=== PATIENT | female | born 1990 | race American Indian/Alaskan Native ===

== ENCOUNTER 2016-11-03 17:49 | Emergency (ER) | payer SELFPAY ==
[2016-11-03 18:32] VITALS: BP 137/79; PULSE 73; RESP 18; TEMP 97.7; O2SAT 100
[2016-11-03 18:35] VITALS: BMI 45.6
--- NOTE | 2016-11-03 18:59 | ED PDOC ---
Arrival/HPI - General Chief Complaint: Abnormal Skin Integrity Time Seen by Provider: 11/03/16 18:59 Historian: Patient - History of Present Illness Narrative History of Present Illness (Text): 11/03/16 19:10 25yr old female presents today with abscess to the vaginal region x 3 days. pt states she noticed slight irritation to the left side of the vaginal about 3 days ago, pt states she started doing warm soaks and the area of irritation increased in size. pt now c/o painful lump to left side of labia. no fever/ chills. denies dysuria. pt states she is not sexually active. no abdominal pain. no other complaints. Time/Duration: Other (3 days) Symptom Course: Worsening Quality: Aching, Throbbing Severity Level: 8 Past Medical History - Provider Review Nursing Documentation Reviewed: Yes - Travel History Have you recently traveled outside [place] w/in the past 3 mons?: No - Infectious Disease Hx of Infectious Diseases: None - Psychiatric Hx Substance Use: No - Surgical History Hx Orthopedic Surgery: Yes - Anesthesia Hx Anesthesia: No Hx Anesthesia Reactions: No Hx Malignant Hyperthermia: No Family/Social History - Physician Review Nursing Documentation Reviewed: Yes Family/Social History: Unknown Family HX Smoking Status: Never Smoked Hx Alcohol Use: No Hx Substance Use: No Allergies/Home Meds Allergies/Adverse Reactions: Allergies de [place] cruz Allergy (Verified 11/03/16 18:42) ITCHING Review of Systems - Review of Systems Constitutional: absent: Fatigue, Fevers Respiratory: absent: SOB, Cough Cardiovascular: absent: Chest Pain Gastrointestinal: absent: Abdominal Pain Genitourinary Female: absent: Dysuria Musculoskeletal: absent: Back Pain Skin: Abscess Psychiatric: absent: Anxiety, Depression Physical Exam Vital Signs Reviewed: Yes Vital Signs Temp Pulse Resp BP Pulse Ox 11/03/16 18:31 97.7 F 73 18 137/79 100 Temperature: Afebrile Blood Pressure: Normal Pulse: Regular Respiratory Rate: Normal Appearance: Positive for: Well-Appearing, Non-Toxic, Comfortable Pain Distress: None Mental Status: Positive for: Alert and Oriented X 3 - Systems Exam Head: Present: Atraumatic Mouth: Present: Moist Mucous Membranes Neck: Present: Normal Range of Motion Abdomen: No: Tenderness Genitourinary/Pelvic Exam: No: Normal External Genitalia (there is a grape sized area of swelling and erythema and fluctuance noted to the left labia minora; + tenderness; ) Upper Extremity: Present: Normal Inspection Lower Extremity: Present: Normal Inspection Neurological: Present: GCS=15, Speech Normal Skin: Present: Warm, Normal Color, Abscess (left side of labia minora) Lymphatic: No: Inguinal Adenopathy Psychiatric: Present: Alert, Oriented x 3 Medical Decision Making ED Course and Treatment: 11/03/16 21:01 Patient is nontoxic well-appearing in no distress. Vital signs are stable. Motrin, tramadol given for pain Bactrim DS p.o. needle aspiration performed; procedure note; left upper labia; abscess; 0.5cc of 1% lidocaine injected locally into central fluctuance using sterile technique. adequate anesthesia. 18guage needle inserted over central fluctuance; 2cc of purulent discharge released. pt tolerated procedure well. no complications. pt feeling much better after procedure; Patient was advised to use warm compresses warm soaks. advised taking abx as prescribed. 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 advised return immediately if symptoms worsen persist or if new symptoms develop Patient verbalizes understanding of discharge instructions and need for immediate followup. Impression: Abscess, labia Motrin one tablet every 6 hours as needed for pain tramadol; one tablet every 6 hours as needed for moderate to severe pain: May cause drowsiness Bactrim DS: One tablet twice daily x7 days Warm compresses and warm soaks frequently Follow up with the [facility] within the next 2 days. Return immediately if symptoms worsen persist or if new symptoms develop: High fevers, increasing pain, increasing redness, swelling or if any other concerning symptoms develop. - Medication Orders Current Medication Orders: Ketorolac Tromethamine (Toradol) 60 mg IM STAT STA Stop: 11/03/16 19:06 Trimethoprim/Sulfamethoxazole (Bactrim Ds Tab) 1 tab PO STAT STA PRN Reason: Protocol Stop: 11/03/16 19:06 Disposition/Present on Arrival - Present on Arrival Any Indicators Present on Arrival: No History of DVT/PE: No History of Uncontrolled Diabetes: No Urinary Catheter: No History of Decub. Ulcer: No History Surgical Site Infection Following: None - Disposition Have Diagnosis and Disposition been Completed?: Yes Diagnosis: Abscess Disposition: HOME/ ROUTINE Disposition Time: 18:59 Patient Plan: Discharge Condition: GOOD Discharge Instructions (ExitCare): Abscess (ED) Additional Instructions: Motrin one tablet every 6 hours as needed for pain tramadol; one tablet every 6 hours as needed for moderate to severe pain: May cause drowsiness Bactrim DS: One tablet twice daily x7 days Warm compresses and warm soaks frequently Follow up with the [facility] within the next 2 days. Return immediately if symptoms worsen persist or if new symptoms develop: High fevers, increasing pain, increasing redness, swelling or if any other concerning symptoms develop. Prescriptions: Ibuprofen [Motrin] 600 mg PO Q6H PRN #20 tab PRN Reason: pain/fever reduction Sulfamethoxazole/Trimethoprim [Bactrim DS 800 mg-160 mg] 1 tab PO BID #14 tab traMADol [Ultram] 50 mg PO Q6H PRN #6 tab PRN Reason: moderate to severe pain Referrals: Philipp Russo DO [Staff Provider] - Follow up with primary [facility] [Outside] - Follow up with primary Ck Galvan MD [Staff Provider] - [facility] with [facility] [Outside] - Follow up with primary Forms: WORK NOTE
[2016-11-03] MEDS ORDERED: Tmp-Smz 800 mg-160 mg DS Tab PO STA (19:05)
== END 2016-11-03 20:05 | disposition home or self-care (01) ==
LOC: ED 17:49
DX: N76.4 Abscess of vulva (principal)
CPT/HCPCS: 10160; 96372; 99282; J1885